=== PATIENT | female | born 1990 | race Caucasian/White ===

== ENCOUNTER 2023-09-02 12:24 | Outpatient (CLI) | payer OTHER | END 2023-09-02 12:32 | disposition home or self-care (01) | LOC: SONOGRAMA 12:24 | PROVIDERS: ATTEND Obstetrics & Gynecology | DX: R19.00 Intra-abdominal and pelvic swelling, mass and lump, unspecified site (principal) ==

== ENCOUNTER 2023-09-03 15:03 | Outpatient (CLI) | payer OTHER | END 2023-09-03 15:10 | disposition home or self-care (01) | LOC: RAD 15:03 | PROVIDERS: ATTEND Obstetrics & Gynecology | DX: R19.02 Left upper quadrant abdominal swelling, mass and lump (principal) ==